=== PATIENT | female | born 1960 | race Caucasian/White ===

== ENCOUNTER → 2017-05-17 | Outpatient (CLI) | payer OTHER ==
[~2017-05-17] MED LIST: DEXL60CA PO; ESTR2TAB PO; FLUT1DIS26 IH; LEVO25TA5 PO; LORA0.5T PO; NF-ESOM40C PO; ONDA4TAB8 PO; OXYC-471 PO; OXYC-529 PO; RT-ALBUINH IH; SUCR1TAB36 PO
--- NOTE | 2017-05-17 19:12 | Diagnostic Imaging Report ---
EXAMINATION: Bilateral diagnostic mammogram with tomography evaluation. The current study was also evaluated with a Computer Aided Detection (CAD) system. INDICATION: Lumps in the right breast. FINDINGS: The breasts are composed of scattered fibroglandular densities. In the right breast, there are subcentimeter circumscribed nodules with some appearing slightly more prominent compared to the prior exams. These are favored to be related to small breast cysts. The left breast demonstrates no definite change. No suspicious mass or architectural distortion. IMPRESSION: Subcentimeter circumscribed nodules in the right breast appear slightly more prominent compared to the previous exam, likely related to small breast cysts. Ultrasound evaluation is pending. ACR BI-RADS Category 0: Incomplete. (Needs additional imaging evaluation). Result letter will be mailed to the patient. Note: At least 10% of breast cancer is not imaged by mammography. Dictated by: Dictated on workstation # [id number]
--- NOTE | 2017-05-17 19:16 | Diagnostic Imaging Report ---
EXAMINATION: Right breast ultrasound. INDICATION: Right breast pain and circumscribed nodules seen on mammography. FINDINGS: At the 1:30 o'clock position there is a 7 mm simple cyst seen. The four quadrants and retroareolar region of the right breast otherwise demonstrate no suspicious lesion. IMPRESSION: No suspicious or solid lesion is identified. The circumscribed tiny nodules seen on mammography were present before and appear slightly more prominent, likely related to cysts, one of which is seen at 1:30 o'clock position on this exam. Clinical followup of the areas of right breast pain is recommended. If no clinical indication for additional imaging is present, then annual screening mammogram would be recommended. ACR BI-RADS Category 2: Benign findings. Result letter will be mailed to the patient. Note: At least 10% of breast cancer is not imaged by mammography. Dictated by: Dictated on workstation # [id number]
== END ==
LOC: RAD 08:08
PROVIDERS: ATTEND Internal Medicine
DX: N63.10 Unspecified lump in the right breast, unspecified quadrant (principal); N64.4 Mastodynia
CPT/HCPCS: 76641; 77066

== ENCOUNTER 2017-07-13 13:30 | Outpatient (CLI) | payer OTHER ==
[~2017-07-13] VITALS: Ht 167.6 cm; Wt 68.5 kg
[2017-07-13 14:03] VITALS: BP 119/93
[2017-07-13] MEDS ORDERED: methylPREDNISolone 80 MG/ML (DEPO MEDROL) VIAL ONE (14:10)
[2017-07-13 14:34] VITALS: BP 117/85
== END 2017-07-13 14:40 | disposition home or self-care (01) ==
LOC: CARD 13:30
PROVIDERS: ATTEND Pain Medicine Interventional Pain Medicine
DX: M54.16 Radiculopathy, lumbar region (principal); M46.1 Sacroiliitis, not elsewhere classified

== ENCOUNTER 2017-08-10 12:26 | Outpatient (CLI) | payer BC, OTHER ==
[~2017-08-10] VITALS: Ht 167.6 cm; Wt 70.3 kg
[2017-08-10] MEDS ORDERED: methylPREDNISolone 80 MG/ML (DEPO MEDROL) VIAL ONE ×2 (12:36→13:02)
[2017-08-10 12:43] VITALS: BP 120/86
[2017-08-10] MEDS ORDERED: DEXAMETHASONE 10 MG/ML (DECADRON) 1 ML VIAL ONE (13:10)
[2017-08-10] MEDS ORDERED: LIDOCAINE 1% INJ 50 ML (XYLOCAINE) VIAL ONE (13:17)
[2017-08-10 13:30] VITALS: BP 117/85
== END 2017-08-10 13:31 | disposition home or self-care (01) ==
LOC: CARD 12:26
PROVIDERS: ATTEND Pain Medicine Interventional Pain Medicine
DX: M46.1 Sacroiliitis, not elsewhere classified (principal)

== ENCOUNTER → 2018-09-25 | Outpatient (CLI) | payer BC ==
--- NOTE | 2018-09-26 12:04 | Diagnostic Imaging Report ---
EXAMINATION: Digital mammogram bilateral screening with 3D tomosynthesis and CAD. INDICATION: Screening. COMPARISON: The study is compared to prior exams of 05/17/2017, 05/02/2016, and 05/01/2015. PERSONAL HISTORY: At this time, there are no current complaints. FINDINGS: The fibroglandular tissue in both breasts is heterogeneously dense. This does limit the sensitivity of this exam. In the medial aspect of the right breast at approximately the 3 o'clock position and roughly 10 cm from the nipple, there is a fairly well-circumscribed 6 mm nodular density. This nodule is somewhat more conspicuous than noted on the previous study, however. The tomographic images suggest that this lesion has a smooth border and I suspect it is benign. Even so, I would recommend that ultrasound be performed for further study. The overall appearance of the breasts has not changed significantly otherwise. There is no primary or secondary sign of malignancy noted. IMPRESSION: Ultrasound would be recommended for further evaluation of the benign-appearing nodular density in the 3 o'clock position of the right breast at posterior depth. ACR BI-RADS Category 0: Incomplete. (Needs additional imaging evaluation). Result letter will be mailed to the patient. Note: At least 10% of breast cancer is not imaged by mammography. Dictated by: Dictated on workstation # [id number]
== END ==
LOC: RAD 08:27
PROVIDERS: ATTEND Internal Medicine
DX: Z12.31 Encounter for screening mammogram for malignant neoplasm of breast (principal)
CPT/HCPCS: 77067

== ENCOUNTER → 2018-10-15 | Outpatient (CLI) | payer BC ==
--- NOTE | 2018-10-15 13:52 | Diagnostic Imaging Report ---
INDICATION: Inconclusive mammogram. TECHNIQUE: A targeted ultrasound of the right breast was obtained in the 1 to 5 o'clock position. FINDINGS: At the 1 o'clock position of the right breast 5 cm from the nipple, there is a tiny cyst measuring 0.8 x 0.6 x 0.4 cm. No other discrete solid or cystic masses are appreciated. IMPRESSION: Small benign-appearing cyst in the 1 o'clock position of the right breast; otherwise, unremarkable. This does appear to likely correspond with the mammographic finding. ACR BI-RADS Category 2: Benign findings. Dictated by: Dictated on workstation # [id number]
== END ==
LOC: RAD 12:23
PROVIDERS: ATTEND Internal Medicine
DX: N60.01 Solitary cyst of right breast (principal)

== ENCOUNTER → 2018-12-24 | Outpatient (CLI) | payer BC | LOC: CARD 11:51 | PROVIDERS: ATTEND Internal Medicine Interventional Cardiology | DX: R00.2 Palpitations (principal); R07.2 Precordial pain; R06.02 Shortness of breath | CPT/HCPCS: 93306 ==

== ENCOUNTER 2019-01-03 07:01 | Outpatient (RCR) | payer BC ==
[~2019-01-03] VITALS: Ht 167.6 cm; Wt 79.4 kg
[2019-01-03] MEDS ORDERED: CATHETER FLUSH 10 ML SYR IV PRN (07:15)
[2019-01-03] MEDS ORDERED: REGADENOSON 0.4 MG/5 ML SYR (LEXISCAN) IV ONE ×2 (07:30→08:17)
[2019-01-03 08:31] VITALS: BP 120/77
[2019-01-03 08:33] VITALS: BP 129/81
--- NOTE | 2019-01-07 12:42 | Cardiology Stress Test Report ---
Stress Test Report Type of NM Stress Test: Test Type: LEXISCAN 0.4MG/5ML Date of Procedure/Referring: Date of Procedure: Jan 03, 2019 PCP Bertha Alvarez MD Admitting Physician Flakita Knight DO Indications: Palpitations Baseline Heart Rate: 68 Baseline Blood Pressure: Blood Pressure Systolic: 129 Blood Pressure Diastolic: 81 Baseline EKG: Baseline EKG: sinus rhythm Summary & Conclusion: Summary: The patient was brought to the stress lab after informed consent was taken. Str ess test was performed according to the Lexiscan protocol. 0.4 mg of IV Lexiscan was given. Low-grade exercise was performed. Baseline EKG showed sinus rhythm at 68 BPM. Initial blood pressure was 120/77 mmHg. Maximum heart rate was 76 bpm and blood pressure 128/76 mmHg. Patient did not have any chest pain, arrhythmias or ST segment changes during the stress test. 10.29 mCi of Myoview were given for rest imaging and 30.6 mCi of Myoview given for stress imaging. Transient ischemic dilatation score 1.02, EF 54 percent. Normal wall motion. Normal myocardial perfusion imaging during rest and stress. Conclusion: Pharmacological stress test was negative for ischemia. Normal LV function with no wall motion abnormalities. Normal myocardial perfusion imaging during rest and stress. Bertha ALVAREZ MD Jan 07, 2019 12:42
[2019-03-18] MEDS ORDERED: FURO-125 PO (07:52)
[2019-03-18] MEDS ORDERED: LEVO100T PO (07:52)
[2019-03-18] MEDS ORDERED: FLUT1DIS26 IH (07:53)
[2019-03-18] MEDS ORDERED: ESTR2TAB4 PO (07:53)
[2019-03-18] MEDS ORDERED: ESOM20CA PO (07:59)
[2019-03-18] MEDS ORDERED: CETI10TA20 PO (07:59)
== END 2019-04-03 | disposition home or self-care (01) ==
LOC: CARD 07:01
PROVIDERS: ATTEND Internal Medicine Interventional Cardiology
DX: R00.2 Palpitations (principal); R07.2 Precordial pain; R06.02 Shortness of breath
CPT/HCPCS: 78452; 93017; 93270

== ENCOUNTER 2019-03-18 07:21 | Day surgery (SDC) | payer BC ==
[~2019-03-18] VITALS: Ht 167 cm; Wt 77.0 kg
[2019-03-18] VITALS (13 sets, daily range): BP systolic 91–128; BP diastolic 68–82
[2019-03-18] MEDS ORDERED: NS IV 1000 ML 1,000 ML IV SCH ×2 (07:23→10:23)
[2019-03-18] MEDS ORDERED: HEParin (CATH LAB) 1,000 ML IV ONE (07:28)
[2019-03-18] MEDS ORDERED: LIDOCAINE 1% INJ 20 ML 20 ML VIAL ONE (07:28)
[2019-03-18] MEDS ORDERED: NS IV 1000 ML 1,000 ML ONE (07:28)
[2019-03-18] MEDS ORDERED: ISOPROTERENOL 0.2 MG/D5W 50 ML IV ONE (07:30)
[2019-03-18 07:42] LABS: HEMOGLOBIN 14.4 G/DL (11.5-16.0); MEAN PLATELET VOLUME 10.1 FL (7.4-10.4); RED CELL DISTRIBUTION WIDTH 12.4 % (10.0-14.5); WHITE BLOOD COUNT 7.1 10^3/uL (4.3-11.0)
[2019-03-18] MEDS ORDERED: SCOPOLAMINE 1.5 MG (TRANSDERM-SCOP) PATCH ONE (07:47)
[2019-03-18] MEDS ORDERED: LEVO100T PO (07:52)
[2019-03-18] MEDS ORDERED: FURO-125 PO (07:52)
[2019-03-18] MEDS ORDERED: LIDOCAINE BOLUS 100 MG/5 ML (IMS) SYR ONE (07:53)
[2019-03-18] MEDS ORDERED: ESTR2TAB4 PO (07:53)
[2019-03-18] MEDS ORDERED: PROPOFOL DRIP (ICU) 100 ML IV ONE ×2 (07:53→10:00)
[2019-03-18] MEDS ORDERED: FLUT1DIS26 IH (07:53)
[2019-03-18] MEDS ORDERED: MIDAZOLAM 2 MG/2 ML (VERSED) VIAL ONE (07:54)
[2019-03-18] MEDS ORDERED: CETI10TA20 PO (07:59)
[2019-03-18] MEDS ORDERED: ESOM20CA PO (07:59)
[2019-03-18 08:02] LABS: PROTHROMBIN TIME PATIENT 13.4 SEC (12.2-14.7)
[2019-03-18 08:04] LABS: ALBUMIN 4.1 GM/DL (3.2-4.5); BILIRUBIN,TOTAL 0.4 MG/DL (0.1-1.0); CALCIUM 9.5 MG/DL (8.5-10.1); CREATININE SERUM 0.96 MG/DL (0.60-1.30); POTASSIUM 3.7 MMOL/L (3.6-5.0); TOTAL PROTEIN 7.6 GM/DL (6.4-8.2)
--- NOTE | 2019-03-18 08:11 | NUR ---
SPOKE WITH THE PT (SHE HAD A MED LIST) WELL CALL OFE TO COMPLETE THE MED REC. PT IS PAST DUE ON ALL HER MEDICATIONS BUT SHE SAYS THESE ARE STILL ACTIVE MEDS. MAY 2018: ADVAIR #1 08-22-2018 ESTRADIOL #30/30DS 08-22-2018 LEVOTHYROXINE #30/30DS 01-08-2019 FUROSEMIDE #30 (ONLY USES PRN SO UNSURE OF A DAY SUPPLY) OTC MEDS: CETIRIZINE: 1 HS ESOMEPRAZOLE: 1HS
--- NOTE | 2019-03-18 10:17 | Cardiac Procedure Note-CS/ASA ---
Pre-Procedure Note Pre-Op Procedure Note H&P Reviewed The H&P was reviewed, patient examined and no changes noted. Date H&P Reviewed: Mar 18, 2019 Time H&P Reviewed: 08:00 Conscious Sedation Pre-Proced Time 08:00 ASA Score 3 For ASA 3 and 4: Consider anesthesia and medical clearance. Also, for patients with a history of failed moderate sedation consider anesthesia. Airway Lungs Heart ASA score ASA 1: a normal healthy patient ASA 2: a patient with a mild systemic disease (mid diabetes, controlled hypertension, obesity ASA 3: a patient with a severe systemic disease that limits activity (angina, COPD, prior Myocardial infarction) ASA 4: a patient with an incapacitating disease that is a constant threat to life (CHF, renal failure) ASA 5: a moribund patient not expected to survive 24 hrs. (ruptured aneurysm) ASA 6: a declared brain- patient whose organs are being harvested. For emergent operations, add the letter E after the classification Mallampati Classification Grade 1 Sedation Plan Analgesia, Amnesia, Plan communicated to team members, Discussed options with patient/fam, Discussed risks with patient/fam The patient is an appropriate candidate to undergo the planned procedure, sedation, and anesthesia. The patient immediately re-assessed prior to indication. Bertha SALDIVAR MD Mar 18, 2019 10:17
--- NOTE | 2019-03-18 10:23 | Electrophysiology Procedure ---
EP Procedure DATE OF SERVICE:03/18/19 CARDIAC NEUROPHYSIOLOGICAL TECHNICIAN: Chon Alvarez MD, [facility], [facility]. INDICATION: Palpitations. PREOPERATIVE DIAGNOSIS: Palpitations. POSTOPERATIVE DIAGNOSES: Negative EP study. HISTORY: This is a 58-year-old lady with complains of palpitation. Event monitor showed possible narrow complex tachycardia. The patient is planned for comprehensive EP study and ablation. PROCEDURE PERFORMED: 1. Comprehensive EP study with induction. 2. Fluoroscopy. 3.Left atrial pacing and recording. 4. Drug infusion. COMPLICATION: None. ESTIMATED BLOOD LOSS: 10 mL. CONTRAST USED: None. FLUOROSCOPY TIME: 3.3 min. FLUOROSCOPY DOSE: 34 mgy. SPECIMENS: None. ANESTHESIA: Done by our anesthesia colleagues. ANTICOAGULATION: None PROCEDURE IN DETAIL: After informed consent was taken, the patient was brought to the EP lab. Anesthesia was provided by our anesthesia colleagues. The patient was draped and prepped in the usual sterile fashion. The patient presented to the EP lab in sinus rhythm. Access was gained in the right femoral vein with a 6-Austrian and an 8-Austrian sheath. Left access in left femoral vein was gained with 5-Austrian and 6-Austrian sheath respectively. High right atrial catheter was a Pratibha catheter, right ventricular catheter was placed, his catheter and the CS catheter were also placed. A comprehensive EP study was done. Dual AV luis m physiology was not demonstrated. No echoes were noted. RV pacing demonstrated concentric atrial activation. Left atrial pacing and recording ruled out left lateral bypass tract. Rapid atrial pacing with and without Isuprel did not induce any tachycardia. The patienttolerated the procedure well and did not have any complication. The patientleft the lab in sinus rhythm. MEASUREMENTS/EP STUDY: AH Interval 85 ms, HV interval 56 ms, AA interval 804 ms, MS interval 126 ms, QRS duration 74 ms, AV Wenckebach at cycle length 360 ms, Retrograde Wenckebach when pacing at cycle length 300 ms. Left atrial AV Wenckebach when pacing at 340 ms, On Isuprel AV Wenckebach when pacing at 280 ms. Atrial ERP 600/280 ms, Atrial ERP at 500/280 ms, On Isuprel atrial ERP 400/230 ms, On Isuprel retrograde ERP of 400/200 ms, During washout atrial ERP of 450/250 ms. PLAN: The patient will be observed for 4 hours and will be discharged home today with precise followup instructions. Chon Alvarez MD, RS, CCDS Cardiac Electrophysiology Bertha ALVAREZ MD Mar 18, 2019 10:23
--- NOTE | 2019-03-18 10:26 | Discharge Inst-Post CATH ---
Discharge Inst-CATH/EP Problems Reviewed?: Yes Final Diagnosis Palpitations, negative EP study. Post Cardiac Cath/EP D/C Inst Follow Up/Plan Follow-up in Dr. Alvarez in 4 weeks. <b>CARDIAC CATH/EP PROCEDURE DISCHARGE INSTRUCTIONS</b> ACTIVITY * Go Home directly and rest. * Limit activity of the leg (or wrist if it was used) for 7 days including aerobics, swimming, jogging, bicycling, etc. * Restrict stair-climbing for 7 days if possible, if not, climb up with your non-cath leg, then bring together on the same step. * Avoid lifting, pushing, pulling or excessive movement of the affected extremity for 7 days. * Customary sexual activity may be resumed after 2 days-use caution not to use a position that strains or causes pain to the affected extremity. * No driving for 24 hours. * NO SMOKING. * Avoid straining for bowel movements for 7 days. * Gentle walking on level ground is allowed. * Returning to work will depend on the type of procedure and the results. Your doctor will discuss this with you. CALL YOUR DOCTOR FOR ANY OF THE FOLLOWING: *If bleeding from the puncture site occurs- Apply gentle pressure to site with clean cloth and call your doctor or EMS. * If a knot or lump forms under the skin, increases in size, or causes pain. * If bruising appears to be worsening or moving further down your leg instead of disappearing. * Temperature above 101 F. CARE OF YOUR GROIN INCISION; * Bruising or purple discoloration of the skin near the puncture site is common. * You may shower only, no bathtub bathing for 5 days. Be careful to avoid slipping as your leg may feel stiff. * If a closure device was used on your femoral artery, please see the attached guide regarding care of the device and your leg. * Leave dressing on FOR 24 hours. CARE OF YOUR WRIST INCISION; * Bruising or purple discoloration of the skin near the puncture site is common. * You may shower. * DO NOT submerge wrist. * Leave dressing on FOR 24 hours. Bertha ALVAREZ MD Mar 18, 2019 10:26
--- NOTE | 2019-03-18 10:27 | Cardiology Discharge Summary ---
Diagnosis/Chief Complaint Date of Admission 03/18/2019 Date of Discharge 03/18/2019 Admission Diagnosis Palpitations Final/Discharge Diagnosis Negative EP study Chief Complaint/HPI Chief Complaint/HPI This is a 58-year-old lady with palpitations. Event monitor showed occasional narrow complex tachycardia Discharge Summary Procedures EP study did not show dual AV luis m physiology. No left lateral bypass tract. No echoes. No inducible tachycardia. Discharge Physical Examination Unremarkable. Hospital Course Was the Problem List Reviewed?: Yes Stable. Pending Labs Laboratory Tests 03/18/19 07:30: White Blood Count 7.1, Red Blood Count 4.68, Hemoglobin 14.4, Hematocrit 44, Mean Corpuscular Volume 94, Mean Corpuscular Hemoglobin 31, Mean Corpuscular Hemoglobin Concent 33, Red Cell Distribution Width 12.4, Platelet Count 262, Mean Platelet Volume 10.1, Prothrombin Time 13.4, INR Comment 1.0, Activated Partial Thromboplast Time 31, Sodium Level 140, Potassium Level 3.7, Chloride Level 106, Carbon Dioxide Level 26, Anion Gap 8, Blood Urea Nitrogen 20, Creatinine 0.96, Estimat Glomerular Filtration Rate 60, BUN/Creatinine Ratio 21, Glucose Level 92, Calcium Level 9.5, Corrected Calcium 9.4, Total Bilirubin 0.4, Aspartate Amino Transf (AST/SGOT) 14, Alanine Aminotransferase (ALT/SGPT) 13, Alkaline Phosphatase 71, Total Protein 7.6, Albumin 4.1 Discussion & Recommendations Discussion Discussed with the patient and family. Follow up appt.: Follow Dr. Alvarez in 4 weeks. Dicharge Diet: Regular Diet Activity as Tolerated: Yes Home Medications Reviewed patient Home Medication Reconciliation performed by pharmacy medication reconciliations rvda master certified rv technician and/or nursing. Patients Allergies have been reviewed. Discharge Home Medications: Reviewed and agree with Discharge Medication list on patient's Discharge Instruction sheet Condition at discharge Stable. Instructions to patient/family Follow-up in Dr. Alvarez in 4 weeks. Bertha ALVAREZ MD Mar 18, 2019 10:27
[2019-03-18] MEDS ORDERED: PATIENT MAY USE OWN MEDS, ALL PO SCH (10:30)
--- NOTE | 2019-03-18 10:58 | Anesthesia-General Post-Op ---
MAC Patient Condition Mental Status/LOC: Same as Preop Cardiovascular: Satisfactory Nausea/Vomiting: Absent Respiratory: Satisfactory Pain: Controlled Complications: Absent Post Op Complications Complications None Follow Up Care/Instructions Patient Instructions None needed. Anesthesiology Discharge Order Discharge Order Patient is doing well, no complaints, stable vital signs, no apparent adverse anesthesia problems. No complications reported per nursing. WONG TRIPP CRNA Mar 18, 2019 10:58
[2019-03-18] MEDS ORDERED: fentaNYL INJECTION 100 MCG/2 ML AMP IVP ONE (11:00)
[2019-03-18] MEDS ORDERED: ONDANSETRON 4 MG/2 ML (SDV) Z0FRAN IVP PRN (11:00)
== END 2019-03-18 14:55 | disposition home or self-care (01) ==
LOC: CATH 07:21 → SDC 11:20 → CATH 14:55
PROVIDERS: ATTEND Internal Medicine Interventional Cardiology
DX: R00.2 Palpitations (principal); J45.909 Unspecified asthma, uncomplicated; Z90.710 Acquired absence of both cervix and uterus; Z91.040 Latex allergy status; Z79.899 Other long term (current) drug therapy
CPT/HCPCS: 36415; 80053; 85027; 85610; 85730; 87081; 93005; 93620; 93621; 93623

== ENCOUNTER → 2019-11-01 | Outpatient (CLI) | payer BC ==
[~2019-11-01] MED LIST changes: +CETI10TA21 PO; +ESOM20CA PO; +ESTR2TAB4 PO; +FURO-125 PO; +LEVO100T PO; -OXYC-529 PO; +OXYC5TAB96 PO
--- NOTE | 2019-11-01 18:50 | Diagnostic Imaging Report ---
INDICATION: Routine screening. COMPARISON: Prior mammogram from 09/25/2018 and 05/17/2017. EXAMINATION: 2D and 3D bilateral screening mammography was performed with CAD. The current study was also evaluated with a Computer Aided Detection (CAD) system. FINDINGS: Both breasts are heterogeneously dense, limiting the sensitivity of mammography. Circumscribed density in the medial aspect of the right breast has decreased in size, likely diminution of a cyst. Circumscribed density more laterally in the right breast is stable. No spiculated mass or malignant appearing microcalcifications are seen. Axillae are unremarkable. IMPRESSION: No mammographic features suspicious for malignancy are identified. Dictated by: Dictated on workstation # [id number]
== END ==
LOC: RAD 09:46
PROVIDERS: ATTEND Internal Medicine
DX: Z12.31 Encounter for screening mammogram for malignant neoplasm of breast (principal)
CPT/HCPCS: 77063; 77067

== ENCOUNTER 2019-11-19 09:56 | Outpatient (CLI) | payer BC ==
[~2019-11-19] VITALS: Ht 167.7 cm; Wt 77.3 kg
[2019-11-19] MEDS ORDERED: IRON SUCROSE 200 MG/10 ML (VENOFER) VIAL IV ONE (10:04)
[2019-11-19 10:05] VITALS: BP 110/79
[2019-11-19] MEDS ORDERED: IRON SUCROSE 200 MG/10 ML (VENOFER) VIAL IV NR (10:17)
== END 2019-11-19 11:12 | disposition home or self-care (01) ==
LOC: SDC 09:56
PROVIDERS: ATTEND Internal Medicine
DX: E61.1 Iron deficiency (principal)
CPT/HCPCS: 96365; 96374

== ENCOUNTER → 2020-09-07 | Outpatient (CLI) | payer BC ==
[~2020-09-07] VITALS: Ht 167.6 cm; Wt 67.3 kg
[~2020-09-07] MED LIST changes: -CETI10TA21 PO; +CETI10TA49 PO; +IRON DEXTRAN 1,000 MG/NS 250 ML IVPB IV ONE; +IRON DEXTRAN 25 MG/NS 6.25 ML TOTAL VOLUME IV ONE; +OXC5T PO; -OXYC-471 PO; +OXYC1TAB11 PO; -OXYC5TAB96 PO
[2020-09-07 13:00] VITALS: BP 101/69
== END ==
LOC: SDC 11:46
PROVIDERS: ATTEND Internal Medicine
DX: E61.1 Iron deficiency (principal)
CPT/HCPCS: 96365; 96366

== ENCOUNTER → 2020-11-27 | Outpatient (CLI) | payer BC, OTHER ==
[~2020-11-27] MED LIST changes: -IRON DEXTRAN 1,000 MG/NS 250 ML IVPB IV ONE; -IRON DEXTRAN 25 MG/NS 6.25 ML TOTAL VOLUME IV ONE
--- NOTE | 2020-11-30 09:23 | Diagnostic Imaging Report ---
INDICATION: Routine screening. COMPARISON: 11/01/2019 and 09/25/2018. TECHNIQUE: 2D and 3D bilateral screening mammography was performed with CAD. FINDINGS: Both breasts are heterogeneously dense, limiting the sensitivity of mammography. Circumscribed nodules in the right breast appear stable. No spiculated mass or malignant appearing microcalcifications are seen. The axillae are unremarkable. IMPRESSION: No mammographic features suspicious for malignancy are identified. ACR BI-RADS Category 2: Benign findings. Result letter will be mailed to the patient. Note: At least 10% of breast cancer is not imaged by mammography. Dictated by: Dictated on workstation # [id number]
== END ==
LOC: RAD 13:00
PROVIDERS: ATTEND Internal Medicine
DX: Z12.31 Encounter for screening mammogram for malignant neoplasm of breast (principal)
CPT/HCPCS: 77063; 77067

== ENCOUNTER → 2021-07-01 | Outpatient (CLI) | payer BC, OTHER ==
[~2021-07-01] MED LIST changes: -ESTR2TAB PO; +ESTR2TAB3 PO
--- NOTE | 2021-07-01 10:27 | Diagnostic Imaging Report ---
INDICATION: Shortness of air. TIME OF EXAM: 10:20 AM CORRELATION is made with prior chest radiograph from 07/03/2015. Heart size normal. There is some patchy infiltrate in the left upper lobe suggestive of pneumonia. Right lung is clear. There is no effusion or pneumothorax detected. IMPRESSION: Patchy left upper lobe pneumonia. Dictated by: Dictated on workstation # [id number]
== END ==
LOC: RAD 09:41
PROVIDERS: ATTEND Physician Assistant
DX: J18.9 Pneumonia, unspecified organism (principal); J45.31 Mild persistent asthma with (acute) exacerbation
CPT/HCPCS: 71046

== ENCOUNTER → 2021-12-31 | Outpatient (CLI) | payer BC ==
--- NOTE | 2022-01-03 09:29 | Diagnostic Imaging Report ---
INDICATION: Routine screening. COMPARISON: 11/27/2020 and 11/01/2019. TECHNIQUE: 2D and 3D bilateral screening mammography was performed with CAD. FINDINGS: Both breasts are heterogeneously dense, limiting the sensitivity of mammography. The circumscribed nodules on the right appear stable. No new mass or malignant-appearing microcalcifications are seen. The axillae are unremarkable. IMPRESSION: No mammographic features suspicious for malignancy are identified. ACR BI-RADS Category 2: Benign findings. Result letter will be mailed to the patient. Note: At least 10% of breast cancer is not imaged by mammography. Dictated by: Dictated on workstation # [id number]
== END ==
LOC: RAD 15:34
PROVIDERS: ATTEND Internal Medicine
DX: Z12.31 Encounter for screening mammogram for malignant neoplasm of breast (principal)
CPT/HCPCS: 77063; 77067

== ENCOUNTER → 2023-01-30 | Outpatient (CLI) | payer OTHER ==
--- NOTE | 2023-01-30 12:32 | Diagnostic Imaging Report ---
PROCEDURE: US Thyroid. TECHNIQUE: Multiple real-time grayscale images were obtained of the thyroid in various projections. INDICATION: Globus sensation. Dysphagia. Concern for thyroid mass. COMPARISON: None. FINDINGS: Both thyroid lobes demonstrate smooth and homogenous background echotexture. Color flow Doppler demonstrates normal and symmetric vascularity bilaterally. The right lobe measures 4.4 cm in length, 1.2 cm AP, and 0.9 cm transverse. The left lobe measures 2.8 cm in length, 1.0 cm AP, and 0.7 cm transverse. The isthmus measures 0.2 cm. Cystic nodule seen in the superior pole of the right lobe of the thyroid measuring 0.5 x 0.2 x 0.3 cm. IMPRESSION: 1. Somewhat asymmetric prominence of the right lobe of the thyroid. A benign-appearing cystic nodule seen in the superior pole of the right lobe of the thyroid measuring up to 0.5 cm. No dedicated follow-up is recommended. Dictated by: Dictated on workstation # [id number]
== END ==
LOC: RAD 08:21
PROVIDERS: ATTEND Otolaryngology Otolaryngology/Facial Plastic Surgery
DX: E04.1 Nontoxic single thyroid nodule (principal); F45.8 Other somatoform disorders; Z80.8 Family history of malignant neoplasm of other organs or systems
CPT/HCPCS: 76536

== ENCOUNTER → 2023-02-13 | Outpatient (CLI) | payer OTHER ==
[~2023-02-13] MED LIST changes: +BARIUM for suspension 96% w/w (Vanilla Silq Medium Density) PO ONE; +BARIUM for suspension 98% w/w (Vanilla Silq High Density) PO ONE
--- NOTE | 2023-02-13 11:56 | Diagnostic Imaging Report ---
INDICATION: Difficulty swallowing pills and solid food. TECHNIQUE: Patient ingested effervescent crystals as well as thin and thick barium, and imaging of the esophagus was performed in multiple obliquities. A total of 0.8 minutes of fluoroscopic time was utilized. Reference air kerma is 12.8 mGy. 37 images were obtained. FINDINGS: Preliminary radiograph of the chest is unremarkable. The esophagus has a smooth contour. No mass or strictures identified. No hiatal hernia or gastroesophageal reflux was demonstrated. Visualized stomach is unremarkable. IMPRESSION: Unremarkable esophagram. Dictated by: Dictated on workstation # [id number]
== END ==
LOC: RAD 09:40
PROVIDERS: ATTEND Otolaryngology Otolaryngology/Facial Plastic Surgery
DX: R13.10 Dysphagia, unspecified (principal); Z80.8 Family history of malignant neoplasm of other organs or systems
CPT/HCPCS: 74220